=== PATIENT | female | born 1965 | race Caucasian/White ===

== ENCOUNTER 2016-06-21 23:20 | Emergency (ER) | payer MEDICARE ==
[2016-06-22 05:19] LABS: HEMOGLOBIN 12.9 gm/dl (12.3-15.3); RED BLOOD COUNT 4.35 M/UL (4.00-5.10); WHITE BLOOD COUNT 12.1 K/UL (4.5-11.0)
== END 2016-06-22 09:55 | disposition home or self-care (01) ==
LOC: ER1 23:20
PROVIDERS: Student in an Organized Health Care Education/Training Program
DX: I71.4 Abdominal aortic aneurysm, without rupture (principal); I10 Essential (primary) hypertension; E78.5 Hyperlipidemia, unspecified; F41.9 Anxiety disorder, unspecified; F17.210 Nicotine dependence, cigarettes, uncomplicated; Z79.82 Long term (current) use of aspirin; Z79.899 Other long term (current) drug therapy
CPT/HCPCS: 36415; 71020; 80053; 82550; 82553; 83690; 83874; 83880; 84484; 85025; 85379; 93005; 94664; 96361; 96374; 96375; 99285; J2270; J2930; J7050; Q9963

== ENCOUNTER → 2020-08-23 | Outpatient (CLI) | payer OTHER | LOC: KOH-I 08-06 13:30 | DX: F17.210 Nicotine dependence, cigarettes, uncomplicated (principal); I71.2 Thoracic aortic aneurysm, without rupture | CPT/HCPCS: 71271 ==